=== PATIENT | male | born 1930 | race Caucasian/White ===

== ENCOUNTER 2017-01-01 12:52 | Emergency (ER) | payer MEDICARE ==
--- NOTE | ~2017-01-01 | CR150 ---
[facility] A Service of [facility] RADIOLOGY TEXT RESULTS PATIENT: PATRIC HERNANDEZ LOCATION: [facility] : 32 UNIT #: [id number] AGE: [address]: Christos Joseph MD SEX: M ORDER DR: [id number] [facility] [address] [place], [place] [address] [id number] E MR#: [id number] Acc #: [id number] NAME: PATRIC HERNANDEZ : 1930 SEX: M STUDY DATE/TIME: 01/01/2017 16:18 UNIT: [facility] ROOM: STUDY DESCRIPTION: CR Hip Min 2 Views Lt Attending Physician: Christos Joseph M.D. Ordering Physician: Christos Joseph M.D. Primary Care Physician: Louis Esparza M.D. MEDICAL IMAGING REPORT This report is preliminary unless electronic signature is present EXAM AP pelvis view frog view left hip (2 images), 01/01/2017 HISTORY Left hip pain laterally and posteriorly after falling yesterday. COMPARISON CT abdomen and pelvis, 11/09/2012 FINDINGS No acute pelvic fracture, hip fracture or hip dislocation is seen. No suspicious osteolytic or osteoblastic abnormalities. Hip joint spaces appear fairly well maintained without significant osteoarthritic change. No sacroiliac joint or pubic symphysis diastasis is seen. Mild diminished disc height is thought to be present at L3-4. IMPRESSION No acute abnormality of the pelvis or left hip. No significant left hip osteoarthritic changes are identified. Dictated by... Anne Scott M.D. THIS IS AN ELECTRONICALLY VERIFIED REPORT Anne Scott M.D. at 01/02/2017 2:10 PM RORY/serena TD: 01/02/2017 07:55 JOB #: [id number] MEDICAL IMAGING REPORT Page 1 of 1 COPY
[~2017-01-01 12:52] MED LIST: AMARYL PO; ASPIRIN81 M1; ASPIRIN81 MG PO; AUGMENTIN875 MG PO; B12 HEALTH1000 MCG/1 PO; BACTROBAN15 GM TOP; BAYER ASPIRIN325 M1 PO; BENICAR HCT 20-1 TA1 PO; BENICAR HCT 40-1 TA1 PO; BENTYL10 MG PO; CARDURA PO; CERTAGEN PO; CORDARONE200 M1 PO; COUMADIN4 MG PO; DETROL LA PO; DILT-XR240 M1 PO; FLAGYL PO; FLOMAX0.4 M1 PO; FLOMAX0.4 MG PO; GELNIQUE30 GM; GELNIQUE30 GM TD; JANTOVEN4 MG; JANTOVEN5 MG PO; K-DUR20 ME1 PO; LEXAPRO; METOPROLOL SUCC25 MG PO; METOPROLOL TAR25 MG PO; METOPROLOL TART25 MG PO; MULTAQ400 MG PO; NAPROXEN PO; NAPROXEN SODIU220 M1 PO; NORVASC PO; OSTEO BIFLEX PO; PACERONE PO; PERCOCET PO; PREVACID 24HR15 MG PO; PRILOSEC PO; PRILOSEC20 MG PO; VIBRAMYCIN100 M1 PO; VIT B 12 PO
[2017-01-01 16:31] LABS: BASOPHIL% 0.5 % (0-2.5); EOSINOPHIL# 0.1 X10e3 (0-0.7); EOSINOPHIL% 0.7 % (0.0-7.0); HEMATOCRIT 34.5 % (38.0-50.0); HEMOGLOBIN 11.3 gm/dL (13.0-16.0); LYMPHOCYTE# 1.6 X10e3 (1.0-3.5); LYMPHOCYTE% 19.1 % (17.0-45.0); MEAN CELL VOLUME 90.6 FL (83-96); MEAN CORPUSCULAR HEMOGLOBIN 29.6 PG (28-34); MEAN CORPUSCULAR HGB CONC 32.6 g/dL (30-36); MEAN PLATELET VOLUME 8.5 FL (6.5-11.5); MONOCYTE# 0.7 X10e3 (0-1.0); MONOCYTE% 8.7 % (3.0-12.0); NEUTROPHIL# 5.9 X10e3 (1.5-7.1); PLATELET COUNT 228 X10e3 (140-420); RED BLOOD COUNT 3.81 X10e (3.90-5.60); RED CELL DISTRIBUTION WIDTH 13.9 % (11.0-15.5); WHITE BLOOD COUNT 8.3 X10e3 (4.0-10.5)
[2017-01-01 16:38] LABS: DIFF IND NO
[2017-01-01 16:48] LABS: INR 4.4; PARTIAL THROMBOPLASTIN TIME 44.7 SECONDS (23.5-31.3)
[2017-01-01 16:49] LABS: PROTHROMBIN TIME (PATIENT) 48.8 SECONDS (9.6-11.5)
== END 2017-01-01 17:13 | disposition home or self-care (01) ==
LOC: CED 12:52
PROVIDERS: Emergency Medicine
DX: S00.03XA Contusion of scalp, initial encounter (principal); T45.511A Poisoning by anticoagulants, accidental (unintentional), initial encounter; K21.9 Gastro-esophageal reflux disease without esophagitis; J45.909 Unspecified asthma, uncomplicated; E11.9 Type 2 diabetes mellitus without complications; I10 Essential (primary) hypertension; W01.0XXA Fall on same level from slipping, tripping and stumbling without subsequent striking against object, initial encounter; Y92.009 Unspecified place in unspecified non-institutional (private) residence as the place of occurrence of the external cause
CPT/HCPCS: 36415; 73502; 85025; 85610; 85730; 99283

== ENCOUNTER 2017-02-13 11:33 | Emergency (ER) | payer MEDICARE ==
--- NOTE | ~2017-02-13 | CR151 ---
[facility] A Service of [facility] RADIOLOGY TEXT RESULTS PATIENT: PATRIC HERNANDEZ LOCATION: [facility] : 32 UNIT #: [id number] AGE: [address]: Lázaro Ballesteros DO SEX: M ORDER DR: [id number] [facility] [address] [place], [place] [address] [id number] E MR#: [id number] Acc #: [id number] NAME: PATRIC HERNANDEZ : 1930 SEX: M STUDY DATE/TIME: 02/13/2017 13:17 UNIT: [facility] ROOM: STUDY DESCRIPTION: CR Hip Min 2 Views Rt Attending Physician: Lázaro Ballesteros D.O. Ordering Physician: Ed Ricardo Whaley M.D. Primary Care Physician: Louis Esparza M.D. MEDICAL IMAGING REPORT This report is preliminary unless electronic signature is present EXAM Right hip 02/13/2017 1317 hours HISTORY Patient fell into a wall today, hip pain today. COMPARISON Left hip film 01/01/2017 FINDINGS AP pelvis and frog lateral view right hip demonstrate no pelvic or hip fracture. There is mild degenerative change present. IMPRESSION No pelvic or hip fracture seen. No change from 01/01/2017. Dictated by... Eri De La Rosa M.D. THIS IS AN ELECTRONICALLY VERIFIED REPORT Eri De La Rosa M.D. at 02/13/2017 2:30 PM GREYSON/thea TD: 02/13/2017 14:10 JOB #: [id number] MEDICAL IMAGING REPORT Page 1 of 1 COPY
--- NOTE | ~2017-02-13 | CT71 ---
[facility] A Service of [facility] RADIOLOGY TEXT RESULTS PATIENT: PATRIC HERNANDEZ LOCATION: [facility] : 32 UNIT #: [id number] AGE: [address]: Tay Alexander MD SEX: M ORDER DR: [id number] [facility] [address] [place], [place] [address] [id number] E MR#: [id number] Acc #: [id number] NAME: PATRIC HERNANDEZ. : 1930 SEX: M STUDY DATE/TIME: 02/13/2017 15:22 UNIT: [facility] ROOM: STUDY DESCRIPTION: CT Head Wo Contrast Attending Physician: Tay Alexander M.D. Ordering Physician: Lázaro Ballesteros D.O. Primary Care Physician: Louis Esparza M.D. MEDICAL IMAGING REPORT This report is preliminary unless electronic signature is present EXAM CT of the head, 02/13/2017. HISTORY Right abdominal pain, right hip pain after fall 3 days ago. Intermittent confusion x3 days. TECHNIQUE CT head performed skull base to vertex without intravenous contrast. This CT exam was performed with one or more of the following radiation dose reduction techniques: automatic exposure control, adjustment of mA and/or kV according to patient size, and iterative reconstruction. COMPARISON 09/11/2016 FINDINGS The brain stem is unremarkable. The cerebellum and cerebral hemispheres show normal vinson matter-white matter differentiation. No hemorrhage. No evidence of acute cortical ischemia. Midline structures nondisplaced. No acute basal ganglia abnormality. There are periventricular and deep white matter tract probable sequelae of chronic microvascular ischemia. The ventricles, cisterns and sulci show mild generalized enlargement, consistent with mild generalized atrophy. There is no intra- or extraaxial mass effect or abnormal intracranial fluid collection. The visualized paranasal sinuses and mastoid air cells are clear. No fracture. IMPRESSION 1. No acute abnormality seen in the brain. If the patient has ongoing neurologic symptoms, consider follow-up imaging. 2. Mild periventricular and deep white matter tract probable sequelae of chronic microvascular ischemia. [facility] A Service of [facility] RADIOLOGY TEXT RESULTS PATIENT: PATRIC HERNANDEZ [id number] UNIT #: [id number] AGE: [address]: Tay Alexander MD SEX: M ORDER DR: 3. Mild atrophy. 4. No fracture. 5. Vascular calcifications. Dictated by... Aime Ortiz M.D. THIS IS AN ELECTRONICALLY VERIFIED REPORT Aime Ortiz M.D. at 02/13/2017 10:43 PM LAURA/dashawn TD: 02/13/2017 17:26 JOB #: [id number] MEDICAL IMAGING REPORT Page 1 of 1 COPY
--- NOTE | ~2017-02-13 | CT4 ---
[facility] A Service of [facility] RADIOLOGY TEXT RESULTS PATIENT: PATRIC HERNANDEZ LOCATION: [facility] : 32 UNIT #: [id number] AGE: [address]: Tay Alexander MD SEX: M ORDER DR: [id number] [facility] [address] [place], [place] [address] [id number] E MR#: [id number] Acc #: [id number] NAME: PATRIC HERNANDEZ. : 1930 SEX: M STUDY DATE/TIME: 02/13/2017 14:39 UNIT: [facility] ROOM: STUDY DESCRIPTION: CT Abd and Pelv Wo Cont Attending Physician: Tay Alexander M.D. Ordering Physician: Lázaro Ballesteros D.O. Primary Care Physician: Louis Esparza M.D. MEDICAL IMAGING REPORT This report is preliminary unless electronic signature is present EXAM Abdomen and pelvis CT without contrast HISTORY Right-sided abdominal pain and hip pain after falling 3 days ago with intermittent confusion over the past 3 days. TECHNIQUE Axial images were obtained without contrast. This CT exam was performed with one or more of the following radiation dose reduction techniques: automatic exposure control, adjustment of mA and/or kV according to patient size, and iterative reconstruction. FINDINGS CT ABDOMEN: Mild fibrotic changes are seen at both lung bases. Coronary artery calcifications are seen. In the abdomen, layering hyperdense sludge is seen in the gallbladder. No definite calcified gallstones are seen. The liver, spleen and pancreas are normal in size. No evidence of hydronephrosis or kidney stone disease. Both ureters are non-dilated. No distended bowel loops are noted. The appendix is normal. Diverticulosis is seen without evidence of diverticulitis. No evidence of bowel obstruction. The lower thoracic and lumbar vertebrae show no acute fractures. There is a chronic-appearing upper endplate fracture of L1. IMPRESSION Diverticulosis. No acute or inflammatory changes in the abdomen or pelvis. Sludge in the gallbladder without evidence of gallstones. Mild basilar fibrosis. Dictated by... [facility] A Service of [facility] RADIOLOGY TEXT RESULTS PATIENT: PATRIC HERNANDEZ [id number] 32 UNIT #: [id number] AGE: [address]: Tay Alexander MD SEX: M ORDER DR: Tay Maria M.D. THIS IS AN ELECTRONICALLY VERIFIED REPORT Tay Maria M.D. at 02/14/2017 7:30 AM RLF/megan TD: 02/13/2017 17:43 JOB #: [id number] MEDICAL IMAGING REPORT Page 1 of 1 COPY
--- NOTE | ~2017-02-13 | CR72 ---
[facility] A Service of [facility] RADIOLOGY TEXT RESULTS PATIENT: PATRIC HERNANDEZ LOCATION: [facility] : 32 UNIT #: [id number] AGE: [address]: Tay Alexander MD SEX: M ORDER DR: [id number] [facility] [address] [place], [place] [address] [id number] E MR#: [id number] Acc #: [id number] NAME: PATRIC HERNANDEZ. : 1930 SEX: M STUDY DATE/TIME: 02/13/2017 14:20 UNIT: [facility] ROOM: STUDY DESCRIPTION: CR Chest Single View Portable Attending Physician: Lázaro Ballesteros D.O. Ordering Physician: Lázaro Ballesteros D.O. Primary Care Physician: Louis Esparza M.D. MEDICAL IMAGING REPORT This report is preliminary unless electronic signature is present EXAM Portable chest. HISTORY Dizziness and shortness of breath onset today. TECHNIQUE Single view of the chest was obtained and compared with 02/01/2014. FINDINGS Cardiomegaly and a tortuous ectatic aorta are again seen. The lungs are clear except for mild chronic fibrosis at the left base that is stable since the previous exam. Vascular markings are normal and no pleural fluid is seen. 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 No change from the previous exam. No new infiltrates are seen. Dictated by... Tay Maria M.D. THIS IS AN ELECTRONICALLY VERIFIED REPORT Tay Maria M.D. at 02/13/2017 4:42 PM BENI/aliyah TD: 02/13/2017 14:53 JOB #: [id number] MEDICAL IMAGING REPORT Page 1 of 1 COPY
[2017-02-13 14:45] LABS: BASOPHIL% 0.5 % (0-2.5); EOSINOPHIL# 0.1 X10e3 (0-0.7); EOSINOPHIL% 0.9 % (0.0-7.0); HEMATOCRIT 36.9 % (38.0-50.0); LYMPHOCYTE# 0.9 X10e3 (1.0-3.5); LYMPHOCYTE% 11.9 % (17.0-45.0); MEAN CELL VOLUME 94.2 FL (83-96); MEAN CORPUSCULAR HEMOGLOBIN 30.7 PG (28-34); MEAN CORPUSCULAR HGB CONC 32.6 g/dL (30-36); MEAN PLATELET VOLUME 8.5 FL (6.5-11.5); MONOCYTE# 0.8 X10e3 (0-1.0); MONOCYTE% 10.4 % (3.0-12.0); NEUTROPHIL# 5.7 X10e3 (1.5-7.1); NEUTROPHIL% 76.3 % (40-75); PLATELET COUNT 209 X10e3 (140-420); RED BLOOD COUNT 3.92 X10e (3.90-5.60); RED CELL DISTRIBUTION WIDTH 14.6 % (11.0-15.5); WHITE BLOOD COUNT 7.4 X10e3 (4.0-10.5)
[2017-02-13 14:47] LABS: DIFF IND NO
[2017-02-13 14:55] LABS: POC - CKMB 1.8 ng/mL (0.0-7.9); POC - TROPONIN <0.05 ng/mL (<=0.05)
[2017-02-13 14:58] LABS: INR 1.4; PARTIAL THROMBOPLASTIN TIME 34.3 SECONDS (23.5-31.3)
[2017-02-13 15:01] LABS: PROTHROMBIN TIME (PATIENT) 15.4 SECONDS (10.0-11.7)
[2017-02-13 15:13] LABS: ALBUMIN SERUM 3.6 g/dL (3.5-5.0); BILIRUBIN,TOTAL 1.1 mg/dL (0.2-2.0); BUN/CREATININE RATIO 17.77; CALCIUM SERUM 8.9 mg/dL (8.4-10.2); CREATININE SERUM 0.9 mg/dL (0.6-1.4); GLOM FILT RATE Estimated 78.2 mL/min (>60); MAGNESIUM 1.5 mg/dL (1.6-3.0); POTASSIUM 3.4 mmol/L (3.5-5.1); PROTEIN TOTAL SERUM 6.7 g/dL (6.0-8.3)
[2017-02-13 16:28] LABS: POC - CKMB <1.0 ng/mL (0.0-7.9); POC - TROPONIN <0.05 ng/mL (<=0.05)
[2017-02-13 16:56] LABS: URINE SOURCE CLEAN CATCH
[2017-02-13 17:00] LABS: URINE APPEARANCE CLEAR; URINE BILIRUBIN NEG (NEG); URINE BLOOD NEG (NEG); URINE COLOR YELLOW; URINE GLUCOSE 250 MG/DL (NEG); URINE KETONE TRACE (NEG); URINE LEUKOCYTE ESTERASE TRACE (NEG); URINE NITRATE NEG (NEG); URINE PROTEIN TRACE (NEG)
[2017-02-13 17:03] LABS: U HYALINE CASTS AUWI 0-2 /[LPF]; URINE BACTERIA AUWI NEG (NEGATIVE); URINE SQUAMOUS EPITHELIAL CELL NONE SEEN /[HPF]
[2017-02-13 17:07] LABS: CULTURE INDICATED? NO
[2017-02-14] MEDS ORDERED: METFORMIN PO (10:12)
[2017-02-14] MEDS ORDERED: CELEXA20 MG PO (10:13)
[2017-02-14] MEDS ORDERED: CARTIA XT240 MG PO (10:13)
[2017-02-14] MEDS ORDERED: ACCU-CHEK1 EAC2 (10:14)
== END 2017-02-13 18:20 | disposition home or self-care (01) ==
LOC: CED 11:33
PROVIDERS: Emergency Medicine
DX: S70.01XA Contusion of right hip, initial encounter (principal); S30.0XXA Contusion of lower back and pelvis, initial encounter; Z79.01 Long term (current) use of anticoagulants; F03.90 Unspecified dementia, unspecified severity, without behavioral disturbance, psychotic disturbance, mood disturbance, and anxiety; W18.30XA Fall on same level, unspecified, initial encounter; Y92.002 Bathroom of unspecified non-institutional (private) residence as the place of occurrence of the external cause
CPT/HCPCS: 36415; 70450; 71010; 73502; 74176; 80053; 81003; 82553; 83735; 84484; 85025; 85610; 85730; 99284

== ENCOUNTER 2017-02-14 02:03 | Inpatient (IN) | payer MEDICARE ==
[~2017-02-14] VITALS: Ht 175.3 cm; Wt 83.6 kg
--- NOTE | ~2017-02-14 | DS ---
Unit #: [id number] #: [id number] Patient: PATRIC HERNANDEZ [id number] [address] [address] [id number] I MR#: [id number] NAME: PATRIC HERNANDEZ. ROOM: 564 Age: 86 Sex: M Admission Date: 02/14/2017 : 1930 Discharge Date: 02/19/2017 Attending Physician: Thalia Monsalve M.D. Primary Care Physician: Louis Esparza M.D. DISCHARGE SUMMARY PRINCIPAL DIAGNOSES 1. Dementia with behavioral disturbance. 2. Hypokalemia. 3. Hypertension, controlled. 4. Physical deconditioning. 5. History of atrial fibrillation, currently maintained in normal sinus rhythm and off anticoagulation. 6. Diabetes mellitus type 2, noninsulin requiring and controlled. 7. Aortic stenosis, mild. 8. Benign prostatic hypertrophy, status post transurethral resection of prostate. 9. Gastroesophageal reflux disease. 10. History of nephrolithiasis. 11. History of vitamin B12 deficiency with normal vitamin B12 level here. 12. Osteoarthritis. ECONOMIC SPECIALIST Dr. Gandhi, Psychiatry. PROCEDURES 1. X-ray of the right hip on February 13, 2017 with no pelvic or hip fracture. 2. Chest x-ray on February 13, 2017, with chronic left basilar infiltrate consistent with fibrosis. 3. CT scan of abdomen and pelvis without contrast on February 13, 2017 with diverticulosis. Sludge in the gallbladder without evidence of gallstones. Mild basilar fibrosis noted. 4. CT of the head without contrast on February 13, 2017 with no acute abnormality. Mild periventricular deep white matter tract sequela of small vessel disease noted. 5. MRI of the brain without contrast on February 14, 2017 with no evidence of acute ischemia and no evidence of hemorrhage. Small vessel disease noted. CLINICAL HISTORY AND HOSPITAL COURSE Ms. Hernandez is an 86-year-old male with a history of dementia, who was brought to the emergency department with increasing confusion new onset, worsening agitation. Please refer to H and p for further details. The patient underwent CT scan of the head in the emergency department which was unremarkable. Blood work was also essentially unremarkable. Patient was subsequently admitted for further evaluation. Patient was placed initially on p.r.n. Haldol; however, his agitation continued and I will note it was primarily worse at nighttime. He was Unit #: [id number] #: [id number] Patient: PATRIC HERNANDEZ placed on scheduled Haldol and psychiatry was consulted. Fortunately after about 48 hours, patient's agitation and confusion resolved. His Haldol dose has been tapered. He is now awake during the day and appropriate, though does have some underlying memory loss. He has also underwent MRI of the brain which does not reveal any acute abnormalities as a source of his symptoms. I have discussed with patient's family, namely his and his son Rigo, that he does have underlying dementia and the behavioral disturbance is a component of that. I will continue him on Haldol at home scheduled and will provide a p.r.n. dose in the morning if needed. Patient also has hypertension which was poorly controlled for a portion of hospitalization given he was not compliant with medications; however, even after awake and alert, his blood pressure remained elevated. I am going to increase his dose of hydralazine and blood pressure can be monitored on an outpatient basis. Patient is physically deconditioned, and I will arrange for transfer to subacute rehab. Long-term plans for care are currently being discussed with family, i.e. home care and/or transition to long-term care which ultimately family does not desire unless necessary. DISCHARGE CONDITION Stable. DISCHARGE STATUS Discharge to home. DISCHARGE MEDICATIONS 1. Tylenol 650 mg p.o. q.4 hours p.r.n. for pain. 2. Metformin 1000 mg daily. 3. Haldol 1 mg p.o. at bedtime. 4. Diltiazem 240 mg daily. 5. Hydralazine 50 mg p.o. t.i.d. 6. Mobic 7.5 mg daily. DISCHARGE INSTRUCTIONS 1. The patient was instructed to follow a heart healthy diet and constant carb diet. 2. He can increase his activity as tolerated. FOLLOWUP Patient will follow up with Dr. Esparza upon discharge from rehab. Time spent on discharge, 33 minutes. Dictated by... Thalia Monsalve M.D. IRVING/mitchell TD: 02/19/2017 11:37 JOB #: [id number] Unit #: [id number] #: [id number] Patient: PATRIC HERNANDEZ DISCHARGE SUMMARY Page 1 of 1 X Thalia Monsalve MD X DISCHARGE SUMMARY
--- NOTE | ~2017-02-14 | MR18 ---
[facility] A Service of [facility] RADIOLOGY TEXT RESULTS PATIENT: PATRIC HERNANDEZ LOCATION: [facility] 564-01 : 32 UNIT #: [id number] AGE: [address]: Thalia Monsalve MD SEX: M ORDER DR: [id number] [facility] [address] [place], [place] [address] [id number] I MR#: [id number] Acc #: [id number] NAME: PATRIC HERNANDEZ. : 1930 SEX: M STUDY DATE/TIME: 02/14/2017 9:09 UNIT: [facility] ROOM: [facility] STUDY DESCRIPTION: MR Brain Wo Contrast Attending Physician: Thalia Monsalve M.D. Ordering Physician: Estefania Treadwell M.D. Primary Care Physician: Louis Esparza M.D. MRI CENTER REPORT This report is preliminary unless electronic signature is present. EXAM Brain MR without contrast 02/14/2017 CLINICAL HISTORY Multiple falls began yesterday, confusion and weakness. COMPARISON Prior MRI 02/01/2014. FINDINGS There is no MR evidence of acute ischemia. There is no MR evidence of intracranial hemorrhage. There is mild to moderate motion degradation, and there is nonspecific small vessel type white matter change, but no acute intracranial abnormality is seen. Bone marrow signal is within normal limits. Normal flow voids are seen in the cerebral vessels. IMPRESSION Motion degraded exam, but no convincing acute abnormality. There is some nonspecific white matter change and volume loss, not exceptional for age. There is no hemorrhage, hydrocephalus, extraaxial fluid collection or other acute finding. No substantial interval change since 02/01/2014. Dictated by... Devon Loya M.D. THIS IS AN ELECTRONICALLY VERIFIED REPORT Devon Loya M.D. at 02/14/2017 5:04 PM FLORENCIO/cristobal TD: 02/14/2017 13:25 JOB #: [id number] [facility] A Service of [facility] RADIOLOGY TEXT RESULTS PATIENT: PATRIC HERNANDEZ LOCATION: [facility] 564-01 : 32 UNIT #: [id number] AGE: [address]: Thalia Monsalve MD SEX: M ORDER DR: MRI CENTER REPORT Page 1 of 1 COPY
--- NOTE | ~2017-02-14 | CO ---
Unit #: [id number] #: [id number] Patient: PATRIC HERNANDEZ [id number] [facility] [place], [place] [address] [id number] I MR#: [id number] NAME: PATRIC HERNANDEZ. ROOM: 564 Age: 86 Sex: M Admission Date: 02/14/2017 : 1930 Attending Physician: Thalia Monsalve M.D. Primary Care Physician: Louis Esparza M.D. Consultation Date: 02/16/2017 CONSULTATION REPORT REASON FOR CONSULTATION Confusion and dementia. HISTORY OF PRESENT ILLNESS Mr. Patric Domingo is an 86-year-old white male, seen in room 564 bed 1 on 5C on 02/16/2017 at [facility]. The patient dressed in hospital attire, sleeping, difficult to arouse, confused, somewhat guarded, paranoid, agitated, easily needing redirection. The patient was unable to give any reliable information. The patient was admitted on 02/14/2017 due to progressive confusion and agitation and threatening behavior towards spouse. The patient has a history of atrial fibrillation, AODM, hypertension. The patient has a long-standing issues with memory and hard of hearing. According to the , the patient having increasing problem with memory, confusion, picking on things, hallucination. Behavior was unmanageable, also multiple falls at home. The patient's behavior has been violent at home, unable to be managed at home. PAST PSYCHIATRIC HISTORY Remarkable for history of confusion, possible dementia, history of anxiety and depression known at this time. No history of any inpatient psychiatric treatment. MEDICAL HISTORY Remarkable for history of AODM; atrial fibrillation, on anticoagulated; BPH, status post TURP; history of B12 deficiency; GERD; DJD; hypertension; bladder stone removal; history of cataract surgery; hard of hearing; bilateral knee replacement. MEDICATIONS HISTORY The patient is on Cardizem CD 240 mg daily, Celexa 20 mg daily. FAMILY HISTORY AND SOCIAL HISTORY The patient was living at home with his . No known history of any abuse. No history of any substance abuse. REVIEW OF SYSTEMS Complete review of systems is unremarkable except as mentioned above. Agitation, the patient was unable to provide details. MENTAL STATUS EXAMINATION Vital signs; temperature 97.8, pulse 87, respirations 24, blood pressure 150/79, oxygen saturations 100%. General appearance; the patient dressed in hospital attire, lying comfortably in bed, but received haloperidol Unit #: [id number] #: [id number] Patient: PATRIC HERNANDEZ this morning. The patient was agitated this morning and needed multiple redirection. Confusion. Attention span and concentration, poor. Speech, slow. Orientation, unable to assess. Mood and affect, labile. Thought process and thought content, unable to assess, disorganized. Recent and remote memory, poor. Language, fair. Fund of knowledge, impaired. Insight and judgment, impaired. DIAGNOSES Psychiatric: Delirium, F05; psychosis, not otherwise specified, F29.0; major neurocognitive disorder secondary to Alzheimer disease with behavioral disturbances, F02.81. Secondary diagnosis: Deferred. Medical diagnosis: Please refer to H and P. Stressors: Psychosocial stressor. ASSESSMENT AND PLAN 1. Unable to provide supportive psychotherapy or psychoeducation at this time and coherent. 2. Recommending at this time to continue with current regimen. Celexa was discontinued, agreed with the plan. Also recommending to discontinue Risperdal as would like to keep the minimum medication as possible. The patient's Haldol was recently increased to 3 mg b.i.d. p.o. or IM. Advised to hold Haldol as the patient seemed somewhat sleepy with this medication to attain a bright balance between wakefulness and agitation. Advised to hold Haldol if the patient too sleepy. If no improvement, consider transferring the patient to a [facility] for psychiatric stabilization. Please feel free to call if any questions telephone [phone]. Dictated by... Yosef Alvarez/juan TD: 02/18/2017 19:41 JOB #: [id number] CONSULTATION REPORT Page 1 of 1 X Jose Gandhi MD X CONSULTATION REPORT
--- NOTE | ~2017-02-14 | CO ---
Unit #: [id number] #: [id number] Patient: PATRIC HERNANDEZ [id number] [facility] [address] [place], [place] [address] [id number] I MR#: [id number] NAME: PATRIC HERNANDEZ. ROOM: 564 Age: 86 Sex: M Admission Date: 02/14/2017 : 1930 Attending Physician: Thalia Monsalve M.D. Primary Care Physician: Louis Esparza M.D. Consultation Date: 02/18/2017 CONSULTATION REPORT DISCUSSION Mr. Patric Domingo is an 86-year-old male, seen in room 564, bed 1 at [facility] on 02/18/2017. The patient was sleepy, drowsy, slept good, compliant with medication. The patient is unable to give any coherent history. Disorganized behavior thought process, but redirectable. Cooperative. No agitation. Still having problem with the confusion and memory problem. Vital signs; temperature 97.5, heart rate 69, respiratory rate 20, blood pressure 157/75, and oxygen saturation 95%. REVIEW OF SYSTEMS Complete review of system is unremarkable. MENTAL STATUS EXAMINATION General appearance; the patient dressed in hospital attire, lying comfortably in bed. Attention span and concentration, poor. Speech, slow in volume. Oriented in self. Mood and affect, labile. Thought process; disorganized, circumstantial. Thought content; guarded, paranoid. Recent and remote memory, poor. Language, fair. Fund of knowledge, poor. Insight and judgment, impaired. DIAGNOSIS Psychiatric: Major neurocognitive disorder secondary to Alzheimer disease with behavioral disturbances, F02.81. ASSESSMENT/PLAN Recommending at this time to continue with current combination of medication. The patient is currently on haloperidol, seemed somewhat sleepy, the dosage was lowered to 1 mg at bedtime. I agree with a plan to keep the medication minimum as possible. The patient is also on hydralazine and Mobic, p.r.n. Haldol is also available. The patient will be going to rehab and continue with current treatment on the inpatient unit. If needed, consider further adjustment of medication. Please feel free to call if any questions, telephone #[phone]. Dictated by... Yosef Alvarez/juan TD: 02/19/2017 00:48 JOB #: [id number] Unit #: [id number] #: [id number] Patient: PATRIC HERNANDEZ CONSULTATION REPORT Page 1 of 1 X Jose Gandhi MD CONSULTATION REPORT
--- NOTE | ~2017-02-14 | HP ---
Unit #: [id number] #: [id number] Patient: PATRIC HERNANDEZ [id number] [place], [place] [address] [id number] I MR#: [id number] NAME: PATRIC HERNANDEZ. ROOM: 564 Age: 86 Sex: M Admission Date: 02/14/2017 : 1930 Attending Physician: Estefania Treadwell M.D. Primary Care Physician: Louis Esparza M.D. HISTORY AND PHYSICAL CHIEF COMPLAINT Progressive confusion now with agitation and threatening behavior towards spouse. HISTORY OF PRESENT ILLNESS This pleasant 86-year-old male with atrial fibrillation, AODM, hypertension, is admitted for agitation. The patient himself is a poor historian due to some memory issues and the fact that he is hard of hearing. His states that two months ago he began to pick at things, hallucinate, exhibited more confusion. These symptoms were worse in the night. Also, he has been falling multiple times. He fell yesterday, was brought to this emergency department where his workup was negative. His was offered hospitalization for the patient but she declined and took the patient home. The patient became quite agitated last evening, threatened to hit the . This is the first time the patient has been violent, according to the . He was brought back to this emergency department where he is presently confused, is picking at things in the ER and hallucinating. No recent changes in medication. PAST MEDICAL HISTORY 1. AODM. 2. Atrial fibrillation, anticoagulated, status post cardioversion. Last echo was 01/2014. Ejection fraction 60% with mild MR, mild TR, mild aortic stenosis, mild to moderate [place]. 3. BPH status post TURP. 4. History of B12 deficiency. 5. GERD. 6. DJD. 7. Hypertension. 8. Bladder stone removal. 9. Bilateral total knee replacements. 10. Cataract extraction. 11. 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 12. Bilateral shoulder surgeries. SOCIAL HISTORY The patient lives with his , stopped smoking 50 years ago, drinks an occasional beer. FAMILY HISTORY Noncontributory given patient's age but old record lists CVA. ALLERGIES Unknown anesthetic agent. Unit #: [id number] #: [id number] Patient: PATRIC HERNANDEZ HOME MEDICATIONS Unknown. REVIEW OF SYSTEMS Difficult to obtain due to the patient's confusion. PHYSICAL EXAMINATION GENERAL APPEARANCE: A pleasantly confused 86-year-old male who thinks that he is holding hearing AIDS but, in fact, is holding nothing in his hands. He is picking at his bed sheets and at his gown. VITAL SIGNS: Temperature 98.3. Pulse 80. Respirations 13. Blood pressure 183/82. O2 saturation 94% on room air. HEENT: Pupils are unequal secondary to previous surgery. Extraocular muscles are intact. Pharynx: Dry mucosal membranes. NECK: Supple without adenopathy or thyromegaly. CHEST: Clear. CARDIAC: Normal S1, S2 with a soft systolic murmur best heard along the left sternal border. ABDOMEN: Bowel sounds are present. No hepatosplenomegaly, tenderness or masses. EXTREMITIES: Without edema. Pedal pulses are somewhat diminished. No ulcers on the feet. NEUROLOGIC: The patient is awake, alert. He is oriented to person and year but not to place. His cranial nerves are intact, although his pupils are unequal secondary to previous surgery. He does have some difficulty at times expressing himself. He is picking at the bedsheets and thinks he is holding hearing AIDS when he is holding nothing in his hands. He has equal strength throughout. DIAGNOSTIC STUDIES LABORATORY: Yesterday, hematocrit is 36.9, normal white count, platelet count and MCV. SMA-12: Potassium 3.4, magnesium 1.5. Cardiac markers negative. INR 1.4. Urinalysis without significant white or red cells. IMAGING: Head CT yesterday: Some atrophy, small vessel ischemic disease. Repeat head CT: Atrophy. Chest x-ray: Fibrosis left base, unchanged. CT scan of the abdomen and pelvis: Some biliary sludge, chronic L1 deformity, diverticular disease. Plain x-rays of the hips, pelvis, negative. ASSESSMENT 1. Two months progressive memory loss, hallucination, now falling. Last evening after being released from the ER, he threatened his , was going to hit her and, therefore, was brought back to the emergency department. This was the first time the patient had become violent. 2. AODM. 3. Atrial fibrillation. 4. BPH. 5. Accelerated hypertension. PLAN 1. Check thyroid function test, B12 and MRI scan of the brain. 2. EKG. 3. Check home medicines. 4. PRN Haldol. 5. Dr. Gandhi to see. Unit #: [id number] #: [id number] Patient: PATRIC HERNANDEZ Dictated by Estefania Treadwell M.D. AML/bd TD: 02/14/2017 06:02 JOB #: [id number] HISTORY AND PHYSICAL Page 1 of 1 X Estefania Treadwell MD X HISTORY AND PHYSICAL
--- NOTE | ~2017-02-14 | EKG ---
PATIENT: PATRIC HERNANDEZ UNIT #: [id number] Ventricular Rate: 80 BPM Atrial Rate: 80 BPM P-R Interval: 212 ms QRS Duration: 114 ms Q-T Interval: 330 ms QTC Calculation(Bezet): 380 ms P [place]: 21 degrees Calculated R [place]: -10 degrees Calculated T [place]: 80 degrees Diagnosis Line: Sinus rhythm with 1st degree A-V block Diagnosis Line: Left ventricular hypertrophy with repolarization Diagnosis Line: abnormality Diagnosis Line: Abnormal ECG Diagnosis Line: When compared with ECG of 01-FEB-2014 08:48, Diagnosis Line: Nonspecific T wave abnormality now evident in Diagnosis Line: Inferior leads Diagnosis Line: QT has shortened Diagnosis Line: Confirmed by ZOHAIB MACIAS, JUAN DAVID ([id number]) on 02/15/2017 Diagnosis Line: 10:52:08 AM INTERPRETING MD: ZOHAIB MACIAS
--- NOTE | ~2017-02-14 | CO ---
Unit #: [id number] #: [id number] Patient: PATRIC HERNANDEZ [id number] [facility]. [place], [place] [address] [id number] I MR#: [id number] NAME: PATRIC HERNANDEZ ROOM: 564 Age: 86 Sex: M Admission Date: 02/14/2017 : 1930 Attending Physician: Thalia Monsalve M.D. Primary Care Physician: Louis Esparza M.D. Consultation Date: 02/20/2017 CONSULTATION REPORT REASON FOR CONSULTATION Followup. DISCUSSION Mr. Salgado is an 86-year-old male, seen in room 564 bed 1 at [facility] on 02/20/2017. The patient was sleepy this morning and periods of some agitation last night, confusion, needing redirection. The patient did not require any p.r.n. medication. The patient seems to be tolerating medication fairly well. According to the career information specialist, currently working on appropriate placement. The patient dressed casually lying comfortably in bed. The patient's was at the bedside. Vital signs; temperature 97.5, pulse 73, respirations 16, blood pressure 176/78, oxygen saturations 98%. The patient continues to be confused, but redirectable, cooperative. REVIEW OF SYSTEMS Complete review of systems unremarkable. MENTAL STATUS EXAMINATION General appearance, the patient dressed casually in hospital attire, lying comfortably in bed. Attention span and concentration, poor. Speech, rambling. Orientation in self. Mood and affect, labile. Thought process, circumstantial. Thought content, guarded, paranoid, but denied any thoughts of harming self or others. Recent and remote memory, poor. Language, fair. Fund of knowledge, poor. Insight and judgment, impaired. DIAGNOSES Psychiatric: Major neurocognitive disorder secondary to Alzheimer disease with behavioral disturbances, F02.81. ASSESSMENT AND PLAN 1. Supportive psychotherapy and psychoeducation provided to the patient and family, but the patient unable to comprehend much. Also talked to the patient's and also the patient's son and explained about treatment plan. 2. Advised to continue with current medication. If needed, consider further adjustment of medication. The patient needs supervised living care at this time and also rehab. Please feel free to call if any questions, telephone [phone]. Dictated by... Jose Gandhi M.D. Unit #: [id number] #: [id number] Patient: PATRIC HERNANDEZ MC/modl TD: 02/20/2017 17:57 JOB #: [id number] CONSULTATION REPORT Page 1 of 1 X Jose Gandhi MD X CONSULTATION REPORT
--- NOTE | ~2017-02-14 | CT71 ---
[facility] A Service of [facility] RADIOLOGY TEXT RESULTS PATIENT: PATRIC HERNANDEZ LOCATION: [facility] : 32 UNIT #: [id number] AGE: [address]: Estefania Treadwell MD SEX: M ORDER DR: [id number] [facility]. [place], [place] [address] [id number] P MR#: [id number] Acc #: [id number] NAME: PATRIC HERNANDEZ. : 1930 SEX: M STUDY DATE/TIME: 02/14/2017 2:33 UNIT: PREMA ROOM: STUDY DESCRIPTION: CT Head Wo Contrast Attending Physician: Pavel Davenport M.D. Ordering Physician: Pavel Davenport M.D. Primary Care Physician: Louis Esparza M.D. MEDICAL IMAGING REPORT This report is preliminary unless electronic signature is present EXAM CT scan of the brain without contrast INDICATION Multiple falls yesterday and at home today with acute mental status changes, confusion and weakness. COMPARISON 02/13/[address] exam was performed with one or more of the following radiation dose reduction techniques: automatic exposure control, adjustment of mA and/or kV according to patient size, and iterative reconstruction. FINDINGS Unenhanced images were obtained through the brain. There is generalized atrophy. There are no masses or extraaxial fluid collections or hemorrhage. IMPRESSION Generalized atrophy, otherwise normal. Dictated by... Hardik Escobar M.D. THIS IS AN ELECTRONICALLY VERIFIED REPORT Hardik Escobar M.D. at 02/14/2017 5:53 AM JAMAR/mignon TD: 02/14/2017 03:52 [facility] A Service [facility] RADIOLOGY TEXT RESULTS PATIENT: PATRIC HERNANDEZ LOCATION: [facility] 564-01 : 32 UNIT #: [id number] AGE: [address]: Estefania Treadwell MD SEX: M ORDER DR: JOB #: [id number] MEDICAL IMAGING REPORT Page 1 of 1 COPY
--- NOTE | ~2017-02-14 | CO ---
Unit #: [id number] #: [id number] Patient: PATRIC HERNANEDZ [id number] [facility] [address] [facility]. [place], [place] [address] [id number] I MR#: [id number] NAME: PATRIC HERNANDEZ ROOM: 564 Age: 86 Sex: M Admission Date: 02/14/2017 : 1930 Attending Physician: Thalia Monsalve M.D. Primary Care Physician: Louis Esparza M.D. Consultation Date: 02/17/2017 CONSULTATION REPORT REASON FOR CONSULTATION Followup. DISCUSSION Mr. Salgado is an 86-year-old white male, seen in room 564 bed 1 at [facility]. The patient's was at the bedside. The patient was sitting in chair, pleasant, cooperative, able to recognize his . Able to answer some of the questions, but still having problem with confusion and problem with memory, easily redirectable. The patient's was there since 9 o'clock. Reports that he is doing better, but still having problem at night. The patient's Haldol was lowered this morning to 2 mg b.i.d. The patient was able to tolerate medication fairly well. Alert and awake. Vital signs; temperature 98.8, pulse 70, respirations 20, blood pressure 116/99, oxygen saturation 99%. No agitation. Redirectable and cooperative at this time. Complete review of system unremarkable. Vital signs, please see above. MENTAL STATUS EXAMINATION General appearance; the patient dressed casually in hospital attire, sitting comfortably in chair, made good eye contact. Cooperative, redirectable. Attention span and concentration, fair. Speech, somewhat loud. Oriented in self and place. Mood and affect, labile. Thought process, circumstantial. Thought content, guarded, paranoid, but denied any thoughts of harming self or others. Recent and remote memory, impaired. Language fair. Fund of knowledge, fair to slightly impaired. Insight and judgment, fair to slightly impaired. DIAGNOSES Psychiatric: Major neurocognitive disorder secondary to Alzheimer disease with behavioral disturbances, F02.81; psychosis, not otherwise specified, F29.0. ASSESSMENT AND PLAN 1. Supportive psychotherapy and psychoeducation provided to the patient and the patient's , but the patient unable to comprehend much. 2. Educated about benefits and side effects of medication and course and prognosis of illness to the patient and family, but the patient unable to comprehend much. 3. Agree at this time to continue with lower dosage of Haldol, but if the patient continues to have problem at night, plan to consider medication such as higher dosage of Haldol at nighttime or adding Risperdal. We will continue to follow. Please feel free to call if any questions telephone [phone]. Unit #: [id number] #: [id number] Patient: PATRIC HERNANDEZ Dictated by... Yosef Alvarez/juan TD: 02/18/2017 20:52 JOB #: [id number] CONSULTATION REPORT Page 1 of 1 X Jose Gandhi MD X CONSULTATION REPORT
--- NOTE | ~2017-02-14 | CO ---
Unit #: [id number] #: [id number] Patient: PATRIC HERNANDEZ [id number] [facility] [address] [facility]. [place], [place] [address] [id number] I MR#: [id number] NAME: PATRIC HERNANDEZ ROOM: 564 Age: 86 Sex: M Admission Date: 02/14/2017 : 1930 Attending Physician: Thalia Monsalve M.D. Primary Care Physician: Louis Esparza M.D. Consultation Date: 02/19/2017 CONSULTATION REPORT REASON FOR CONSULTATION Followup. DISCUSSION Mr. Patric Domingo is an 86-year-old white male, seen in room 564, bed 1 on 02/19/2017 at [facility]. The patient was alert and awake. Currently, on Haldol 1 mg at bedtime. The patient was sitting comfortably in chair, made good eye contact, able to answer questions appropriately. The patient's vital signs are stable; temperature 97.4, heart rate 77, respiratory rate 18, blood pressure 176/69, and oxygen saturation 97%. The patient is still having problem with the confusion and poor memory, but no agitation. Redirectable, cooperative, slept good. REVIEW OF SYSTEMS Complete review of systems unremarkable. MENTAL STATUS EXAMINATION General appearance; the patient dressed casually in hospital attire, sitting comfortably in chair. Attention span and concentration, poor. Speech, slow with long pauses. Oriented in self. Mood and affect, labile. Thought process, circumstantial. Thought content, guarded and paranoid, but denied any thoughts of harming self or others. Recent and remote memory, poor. Language, fair. Fund of knowledge, poor. Insight and judgment, impaired. DIAGNOSIS Psychiatric: Major neurocognitive disorder secondary to Alzheimer disease with behavioral disturbances, F02.81. ASSESSMENT/PLAN 1. Supportive psychotherapy and psychoeducation provided to the patient, but the patient unable to comprehend much. 2. Advised to continue with current medication. Agree at this time to continue with a low dose of Haldol 1 mg at bedtime. If needed, consider further adjustment of medication. Please feel free to call if any questions, telephone #[phone]. Dictated by... Yosef Alvarez/juan TD: 02/20/2017 01:03 Unit #: [id number] #: [id number] Patient: PATRIC HERNANDEZ JOB #: [id number] CONSULTATION REPORT Page 1 of 1 X Jose Gandhi MD X CONSULTATION REPORT
[2017-02-14] MEDS ORDERED: METFORMIN PO (10:12)
[2017-02-14] MEDS ORDERED: CARTIA XT240 MG PO (10:13)
[2017-02-14] MEDS ORDERED: CELEXA20 MG PO (10:13)
[2017-02-14] MEDS ORDERED: ACCU-CHEK1 EAC2 (10:14)
[2017-02-14 16:12] LABS: BASOPHIL% 0.5 % (0-2.5); EOSINOPHIL% 0.2 % (0.0-7.0); HEMATOCRIT 37.7 % (38.0-50.0); HEMOGLOBIN 12.6 gm/dL (13.0-16.0); LYMPHOCYTE# 0.8 X10e3 (1.0-3.5); MEAN CELL VOLUME 94.6 FL (83-96); MEAN CORPUSCULAR HEMOGLOBIN 31.6 PG (28-34); MEAN CORPUSCULAR HGB CONC 33.4 g/dL (30-36); MEAN PLATELET VOLUME 8.4 FL (6.5-11.5); MONOCYTE# 0.9 X10e3 (0-1.0); MONOCYTE% 10.5 % (3.0-12.0); NEUTROPHIL# 7.1 X10e3 (1.5-7.1); NEUTROPHIL% 79.8 % (40-75); PLATELET COUNT 214 X10e3 (140-420); RED BLOOD COUNT 3.99 X10e (3.90-5.60); RED CELL DISTRIBUTION WIDTH 14.6 % (11.0-15.5); WHITE BLOOD COUNT 8.9 X10e3 (4.0-10.5)
[2017-02-14 16:13] LABS: DIFF IND NO
[2017-02-14 17:17] LABS: THYROID STIMULATING HORMONE 2.41 uIU/ml (0.34-5.60)
[2017-02-14 17:24] LABS: FREE THYROXIN (T4) 1.12 ng/dL (0.58-1.64)
[2017-02-14 19:34] LABS: CALCIUM SERUM 8.7 mg/dL (8.4-10.2); CREATININE SERUM 0.8 mg/dL (0.6-1.4); GLOM FILT RATE Estimated 82.1 mL/min (>60); POTASSIUM 3.1 mmol/L (3.5-5.1)
[2017-02-19 05:23] LABS: HEMATOCRIT 37.9 % (38.0-50.0); HEMOGLOBIN 12.5 gm/dL (13.0-16.0); MEAN CELL VOLUME 93.2 FL (83-96); MEAN CORPUSCULAR HEMOGLOBIN 30.6 PG (28-34); MEAN CORPUSCULAR HGB CONC 32.8 g/dL (30-36); MEAN PLATELET VOLUME 8.3 FL (6.5-11.5); RED BLOOD COUNT 4.07 X10e (3.90-5.60); RED CELL DISTRIBUTION WIDTH 14.2 % (11.0-15.5); WHITE BLOOD COUNT 6.8 X10e3 (4.0-10.5)
[2017-02-19 06:21] LABS: CALCIUM SERUM 8.9 mg/dL (8.4-10.2); CREATININE SERUM 1.1 mg/dL (0.6-1.4); GLOM FILT RATE Estimated 61.3 mL/min (>60)
[2017-02-19 06:22] LABS: POTASSIUM 2.9 mmol/L (3.5-5.1)
== END 2017-02-20 18:41 | DRG 57 ==
LOC: CED 02:03 → C5C 04:54 → CEDOF 04:54 → CED 04:54 → C5C 05:40
PROVIDERS: Internal Medicine
DX: G30.9 Alzheimer's disease, unspecified (principal); F05 Delirium due to known physiological condition; I48.91 Unspecified atrial fibrillation; F02.81 Dementia in other diseases classified elsewhere, unspecified severity, with behavioral disturbance; E87.6 Hypokalemia; I10 Essential (primary) hypertension; E11.9 Type 2 diabetes mellitus without complications; Z79.84 Long term (current) use of oral hypoglycemic drugs; I35.0 Nonrheumatic aortic (valve) stenosis; N40.0 Benign prostatic hyperplasia without lower urinary tract symptoms; F29 Unspecified psychosis not due to a substance or known physiological condition; K21.9 Gastro-esophageal reflux disease without esophagitis; M19.90 Unspecified osteoarthritis, unspecified site; Z91.81 History of falling; Z87.442 Personal history of urinary calculi; Z96.653 Presence of artificial knee joint, bilateral; Z87.891 Personal history of nicotine dependence; Z98.49 Cataract extraction status, unspecified eye; Z82.3 Family history of stroke
CPT/HCPCS: 36415; 70450; 70551; 71010; 73502; 74176; 80048; 80053; 81003; 82553; 82607; 82947; 83735; 84132; 84439; 84443; 84484; 85025; 85027; 85610; 85730; 93005; 97110; 97116; 97163; 97165; 97530; 97535; 99285; G8978-GP; G8979-GP; G8980-GP; G8987-GO; G8988-GO; J0360; J1630; J1885; J2060; J3475

== ENCOUNTER 2017-03-01 12:56 | Inpatient (IN) | payer MEDICARE ==
--- NOTE | ~2017-03-01 | CO ---
Unit #: [id number] #: [id number] Patient: PATRIC HERNANDEZ [id number] [place], [place] [address] [id number] I MR#: [id number] NAME: PATRIC HERNANDEZ. ROOM: 564 Age: 86 Sex: M Admission Date: 03/01/2017 : 1930 Attending Physician: Brii Serrano M.D. Primary Care Physician: Louis Esparza M.D. CONSULTATION REPORT HISTORY OF PRESENT ILLNESS Mr. Hernandez is an 86-year-old, white male, who has a history of dementia, had been residing at the senior living. Apparently, he became more congested and confused and hypoxic and presented to the emergency room. Apparently, he was in respiratory distress with O2 saturations in the 60s, came to the emergency room, was placed on 5 L and on BiPAP. His daughter and were at the bedside. He had recently been discharged on the 18 with behavioral disturbance and had some medications changed. I think he was doing little bit better at the senior living and at the first of last week, had been awake and alert and choking with his family. PAST MEDICAL HISTORY Significant for; 1. Diabetes. 2. Atrial fibrillation. 3. BPH. 4. History of B12 deficiency. 5. GERD. 6. DJD. 7. Hypertension. 8. Bladder stone. PAST SURGICAL HISTORY He has had bilateral knee replacement, cataract extraction, basal cell and squamous cell carcinoma excision, bilateral shoulder surgeries with replacement. ALLERGIES No known allergies. HOME MEDICATIONS 1. Tylenol. 2. Fleets enema. 3. Glucophage. 4. Haloperidol. 5. Cardizem. 6. Hydralazine. 7. Mobic. FAMILY HISTORY Unknown. SOCIAL HISTORY Stopped smoking at age 27. Occasionally, drinks some beer. Currently, in Unit #: [id number] #: [id number] Patient: PATRIC HERNANDEZ senior living. REVIEW OF SYSTEMS Unobtainable. The patient is unable to give any history. CODE STATUS DNR. Discussed with family at bedside. PHYSICAL EXAMINATION GENERAL: White male, wearing Venturi mask, poorly responsive, snoring with obvious apneic episodes. Apparently, has a history of ELIZABETH, but has refused CPAP. VITAL SIGNS: Blood pressure is 153/70, pulse 85, respiratory rate 20, afebrile. T-max 100.9. HEENT: Normocephalic and atraumatic. Pupils are equal, round, and reactive. Sclerae are nonicteric. Oral cavity dry. Mallampati IV. Some secretions in back of throat. NECK: Supple. Trachea midline. No cervical or supraclavicular lymphadenopathy. LUNGS: Scattered rhonchi. Upper airway sounds. CARDIAC: Regular rate and rhythm. Could not appreciate murmur, rub, or gallop. ABDOMEN: Nontender. Bowel sounds present. No hepatosplenomegaly. EXTREMITIES: Without clubbing, cyanosis, or edema. NEUROLOGIC: He does awaken. He mumbles. He does appear to move all extremities. SKIN: Warm and dry. DIAGNOSTIC STUDIES IMAGING STUDIES: Chest x-ray, new right lower lobe infiltrate. Arterial blood gases; pH 7.39, pCO2 of 40, PO2 of 65, on 50% venturi mask. Chemistries reviewed. Lactic acid 1.6. White count 68764, hematocrit 35.9, and platelet count normal. Current blood cultures are pending. Sputum is pending. IMPRESSION 1. Acute hypoxemic respiratory failure. 2. Likely aspiration pneumonia. 3. Dementia. 4. Diabetes. 5. Hypertension. 6. History of atrial fibrillation. 7. Benign prostatic hyperplasia. RECOMMENDATIONS I would currently cover for antibiotics with aspiration pneumonia and a healthcare-acquired pneumonia type setting, was treated with vancomycin and Zosyn. Deescalate based on culture results. We will start nebulizer treatments ,with albuterol and hypertonic saline. I will gently suction as needed to mobilize secretions. We will make n.p.o. as he is not able to control his airway. Start on IV fluids. We will place Khan catheter. I have discussed code status with daughter and and he has made it known that he wishes DNR status. We will follow through with that. We will administer O2 to maintain adequate saturations. Further recommendations pending. Dictated by... Unit #: [id number] #: [id number] Patient: PATRIC HERNANDEZ Yosef Beasley/juan TD: 03/02/2017 23:35 JOB #: [id number] CONSULTATION REPORT Page 1 of 1 X Krystian Catherine MD CONSULTATION REPORT
--- NOTE | ~2017-03-01 | EKG ---
PATIENT: PATRIC HERNANDEZ UNIT #: [id number] Ventricular Rate: 101 BPM Atrial Rate: 101 BPM P-R Interval: 198 ms QRS Duration: 112 ms Q-T Interval: 388 ms QTC Calculation(Bezet): 503 ms P [place]: 80 degrees Calculated R [place]: -8 degrees Calculated T [place]: 95 degrees Diagnosis Line: Sinus tachycardia Diagnosis Line: Abnormal QRS-T angle, consider primary T wave Diagnosis Line: abnormality Diagnosis Line: Abnormal ECG Diagnosis Line: When compared with ECG of 14-FEB-2017 07:08, Diagnosis Line: Nonspecific T wave abnormality no longer evident Diagnosis Line: in Inferior leads Diagnosis Line: QT has lengthened Diagnosis Line: Poor data quality Diagnosis Line: Confirmed by JUAN DAVID PENNY MD ([id number]) on 03/06/2017 Diagnosis Line: 7:33:09 AM INTERPRETING MD: ZOHAIB MACIAS
--- NOTE | ~2017-03-01 | HP ---
Unit #: [id number] #: [id number] Patient: PATRIC HERNANDEZ [id number] [address] [place], [place] [address] [id number] I MR#: [id number] NAME: PATRIC HERNANDEZ. ROOM: 62302 Age: 86 Sex: M Admission Date: 03/01/2017 : 1930 Attending Physician: Kiara Serrano M.D. Primary Care Physician: Louis Esparza M.D. HISTORY AND PHYSICAL CHIEF COMPLAINT Shortness of breath. HISTORY OF PRESENT ILLNESS The patient is an 86-year-old male with a history of atrial fibrillation, diabetes mellitus, hypertension, brought to the emergency room from the [facility]. The patient was found to be in respiratory distress with the sats down into the 60s at the residential. The patient was put on 5 L of oxygen and then on BiPAP for awhile at the residential. When the patient was brought to the emergency room patient was put on the Venturi mask 50% Venturi mask as the sats were in the 91%. The patient is a poor historian and the history is obtained by speaking to the ER physician and the RN at the bedside. The patient was recently discharged from the hospital on February 19 with dementia with the behavioral disturbance. The patient is having congestion associated with sinusitis, as per the patient's at the bedside, and denies any fever, denies any chills. No further history is available. PAST MEDICAL HISTORY 1. Diabetes mellitus. 2. Atrial fibrillation. 3. BPH. 4. History of a B12 deficiency. 5. GERD. 6. DJD. 7. Hypertension. 8. Bladder stone removal. PAST SURGICAL HISTORY 1. Bilateral total knee replacement. 2. Cataract extraction. 3. Excision of basal and squamous cell carcinoma. 4. Bilateral shoulder surgeries. SOCIAL HISTORY The patient stopped smoking 50 years ago, drinks an occasional beer. FAMILY HISTORY Reviewed and none. ALLERGIES No known drug allergies. Unit #: [id number] #: [id number] Patient: PATRIC HERNANDEZ HOME MEDICATIONS Patient is on Tylenol, Fleet Enema, Glucophage, haloperidol, Cardizem, hydralazine and Mobic. REVIEW OF SYMPTOMS Unable to obtain because the patient is more sleepy and on the Venturi mask and unable to follow the commands. CODE STATUS DNR, from the records. PHYSICAL EXAMINATION GENERAL APPEARANCE: On examination the patient is lying on a bed, not in acute distress. VITAL SIGNS: Temperature is afebrile, pulse 103, respiratory rate 20, blood pressure 162/92, sating 91% at 50% Venturi mask. HEENT: Head atraumatic and normocephalic. Pupils equal, round and reacting to light and accommodation. Dry mucous membrane. NECK: Supple. LUNGS: Decreased air entry at the bases. Positive for rhonchi. HEART: Regular rate and rhythm. Positive for murmur. ABDOMEN: Soft, positive bowel sounds. EXTREMITIES: No cyanosis. No clubbing. NEUROLOGIC: Patient is more sleepy and on the Venturi mask and does not follow any commands. Moves the extremities intermittently. DIAGNOSTIC STUDIES LABORATORY DATA: ABG pH of 7.39, pCO2 of 40, pO2 65, bicarb 25. WBC 11.4, hemoglobin 13, hematocrit 39.9, platelet is 355, neutrophils 88%. Troponin less than 0.05. INR is 1.1. Lactic acid is 1.6. Sodium 140, potassium 4, chloride 100, bicarb 25, glucose 145, BUN 21, creatinine 1.2, AST 27, ALT 33, alkaline phosphatase 55 and BNP is 154. ASSESSMENT 1. Acute respiratory failure, on 50% Venturi mask. 2. Pneumonia at the right lower lobe. 3. History of atrial fibrillation. PLAN 1. Plan to admit the patient to the inpatient with the telemetry. 2. Continue with the IV antibiotics with the Maxipime and Zithromax. 3. Will have the Pulmonary consult. 4. Check the sputum cultures. 5. Repeat the labs again in the morning. 6. Further recommendations will follow as more lab results are available. Dictated by Yosef Platt TD: 03/01/2017 18:37 JOB #: [id number] Unit #: [id number] #: [id number] Patient: PATRIC HERNANDEZ HISTORY AND PHYSICAL Page 1 of 1 X KIARA SERRANO MD X HISTORY AND PHYSICAL
--- NOTE | ~2017-03-01 | DS ---
Unit #: [id number] #: [id number] Patient: PATRIC HERNANDEZ [id number] [address] [address] [id number] MR#: [id number] NAME: PATRIC HERNANDEZ. ROOM: 564 Age: 86 Sex: M Admission Date: 03/01/2017 : 1930 Discharge Date: 03/02/2017 Attending Physician: Brii Serrano M.D. Primary Care Physician: Louis Esparza M.D. DISCHARGE SUMMARY DATE/TIME OF March 02, 2017 at 1401 hours. HISTORY OF PRESENT ILLNESS/HOSPITAL COURSE The patient is an 86-year-old male admitted secondary to dyspnea, multifactorial. Please refer to H and P for complete details. He was admitted, subsequently placed on telemetry floor. On the morning of 03/02/2017 consultation was placed to pulmonary service. Dr. Catherine saw and evaluated the patient. After discussion in regard to the patient's overall long-term prognosis, as well as long-term goals of care, decision was made at that point in time for the patient to be made DNR status. All parties were in agreement, including the patient's who was present at bedside. At approximately 1300 hours on the afternoon of 03/02/2017 the patient's condition started to deteriorate. Later on within the hour the patient's heart rate began to decrease, and at 1401 hours the patient ultimately . was present at bedside. FINAL DISCHARGE DIAGNOSES 1. 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 2. Right lower lobe pneumonia. 3. Prior history of atrial fibrillation. 4. Endstage dementia. 5. Long-term senior living resident. 6. Diabetes. 7. Gastroesophageal reflux disease. 8. Hypertension. 9. Prior history of skin carcinoma. Dictated by... Ash Sidhu M.D. GURU/keith TD: 03/08/2017 12:38 JOB #: [id number] Unit #: [id number] #: [id number] Patient: PATRIC HERNANDEZ DISCHARGE SUMMARY Page 1 of 1 X Ash Sidhu MD DISCHARGE SUMMARY
--- NOTE | ~2017-03-01 | CR72 ---
[facility] A Service of [facility] RADIOLOGY TEXT RESULTS PATIENT: PATRIC HERNANDEZ LOCATION: [facility] 564-01 : 32 UNIT #: [id number] AGE: [address]: KIARA SERRANO MD SEX: M ORDER DR: [id number] [facility] [address] [place], [place] [address] [id number] I MR#: [id number] Acc #: [id number] NAME: PATRIC HERNANDEZ. : 1930 SEX: M STUDY DATE/TIME: 03/01/2017 13:46 UNIT: [facility] ROOM: [facility] STUDY DESCRIPTION: CR Chest Single View Portable Attending Physician: Kiara Serrano M.D. Ordering Physician: Lázaro Ballesteros D.O. Primary Care Physician: Louis Esparza M.D. MEDICAL IMAGING REPORT This report is preliminary unless electronic signature is present EXAM Single view of the chest dated 03/01/2017. COMPARISON Single view chest dated 02/13/2017. HISTORY Shortness of air, dementia today. History of skin cancer. Atrial fibrillation and asthma. FINDINGS Single view of the chest was obtained. Patchy alveolar opacity is noted in the right lung base, worse when compared to the prior study from earlier this month. It could be related to pneumonia in the appropriate clinical setting. Patient positioning limits evaluation. Left lung is relatively well-aerated. Heart is of stable size. 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 Dictated by... Sandra Koch M.D. THIS IS AN ELECTRONICALLY VERIFIED REPORT Sandra Koch M.D. at 03/04/2017 9:41 AM CPR/jt TD: 03/01/2017 19:25 JOB #: [id number] MEDICAL IMAGING REPORT Page 1 of 1 COPY
[~2017-03-01 12:56] MED LIST changes: +ACCU-CHEK1 EAC2; +CARTIA XT240 MG PO; +CELEXA20 MG PO; +METFORMIN PO
[2017-03-01] MEDS ORDERED: METFORMIN PO (13:32)
[2017-03-01] MEDS ORDERED: HALDOL PO (13:32)
[2017-03-01] MEDS ORDERED: CARDIZEM CD240 M2 PO (13:33)
[2017-03-01] MEDS ORDERED: HYDRALAZINE HCL50 MG PO (13:33)
[2017-03-01] MEDS ORDERED: MOBIC PO (13:34)
[2017-03-01] MEDS ORDERED: ACETAMINOPHEN PO (13:34)
[2017-03-01] MEDS ORDERED: FLEET ENEMA133 M1 PR (13:35)
[2017-03-01 13:45] LABS: ARTERIAL BLD GAS O2 SATURATION 90.4 % (90.0-100.0); ARTERIAL BLOOD GAS CARBOXY HB 0.8 %sat (0.0-9.0); ARTERIAL BLOOD GAS MET HB 0.8 %sat (0.0-2.0); ARTERIAL BLOOD GAS PCO2 40.9 mmHg (35.0-45.0); ARTERIAL BLOOD GAS pH 7.394 (7.350-7.450)
[2017-03-01 13:47] LABS: ARTERIAL BLOOD GAS ALLEN TEST NORMAL; ARTERIAL BLOOD GAS ART SITE LEFT RADIAL; ARTERIAL BLOOD GAS PO2 65.3 mmHg (80.0-100); ARTERIAL DRAW? YES
[2017-03-01 13:48] LABS: ARTERIAL BLOOD GAS DELIVERY VENTURI MASK
[2017-03-01 14:23] LABS: BASOPHIL% 0.3 % (0-2.5); DIFF IND NO; HEMATOCRIT 39.9 % (38.0-50.0); LYMPHOCYTE# 0.4 X10e3 (1.0-3.5); LYMPHOCYTE% 3.6 % (17.0-45.0); MEAN CELL VOLUME 93.3 FL (83-96); MEAN CORPUSCULAR HEMOGLOBIN 30.5 PG (28-34); MEAN CORPUSCULAR HGB CONC 32.7 g/dL (30-36); MEAN PLATELET VOLUME 8.2 FL (6.5-11.5); MONOCYTE# 0.9 X10e3 (0-1.0); MONOCYTE% 8.1 % (3.0-12.0); PLATELET COUNT 355 X10e3 (140-420); RED BLOOD COUNT 4.28 X10e (3.90-5.60); RED CELL DISTRIBUTION WIDTH 14.1 % (11.0-15.5); WHITE BLOOD COUNT 11.4 X10e3 (4.0-10.5)
[2017-03-01 14:33] LABS: POC - CKMB 2.6 ng/mL (0.0-7.9); POC - TROPONIN <0.05 ng/mL (<=0.05)
[2017-03-01 14:36] LABS: INR 1.1; PARTIAL THROMBOPLASTIN TIME 29.8 SECONDS (23.5-31.3)
[2017-03-01 14:54] LABS: ALBUMIN SERUM 3.5 g/dL (3.5-5.0); BILIRUBIN, DIRECT 0.4 mg/dL (0.0-0.2); BILIRUBIN,INDIRECT 0.6 mg/dL (0.0-0.9); BUN/CREATININE RATIO 17.5; CALCIUM SERUM 9.1 mg/dL (8.4-10.2); CREATININE SERUM 1.2 mg/dL (0.6-1.4); GLOM FILT RATE Estimated 55.2 mL/min (>60); PROTEIN TOTAL SERUM 7.1 g/dL (6.0-8.3)
[2017-03-01 16:27] LABS: POC - CKMB 2.1 ng/mL (0.0-7.9); POC - TROPONIN <0.05 ng/mL (<=0.05)
[2017-03-02 07:34] LABS: BASOPHIL% 0.2 % (0-2.5); HEMATOCRIT 35.9 % (38.0-50.0); HEMOGLOBIN 11.9 gm/dL (13.0-16.0); LYMPHOCYTE# 0.7 X10e3 (1.0-3.5); MEAN CELL VOLUME 92.8 FL (83-96); MEAN CORPUSCULAR HEMOGLOBIN 30.7 PG (28-34); MEAN CORPUSCULAR HGB CONC 33.1 g/dL (30-36); MEAN PLATELET VOLUME 8.1 FL (6.5-11.5); MONOCYTE# 1.1 X10e3 (0-1.0); MONOCYTE% 7.5 % (3.0-12.0); NEUTROPHIL# 12.8 X10e3 (1.5-7.1); NEUTROPHIL% 87.3 % (40-75); PLATELET COUNT 308 X10e3 (140-420); RED BLOOD COUNT 3.87 X10e (3.90-5.60); WHITE BLOOD COUNT 14.6 X10e3 (4.0-10.5)
[2017-03-02 07:37] LABS: DIFF IND NO
[2017-03-02 08:19] LABS: BUN/CREATININE RATIO 22.72; CALCIUM SERUM 8.3 mg/dL (8.4-10.2); CREATININE SERUM 1.1 mg/dL (0.6-1.4); GLOM FILT RATE Estimated 61.3 mL/min (>60); POTASSIUM 3.7 mmol/L (3.5-5.1)
== END 2017-03-02 17:12 | disposition expired | DRG 177 ==
LOC: CED 12:56 → CEDOF 16:56 → C5C 19:05
PROVIDERS: Emergency Medicine; Internal Medicine
PROC: 05HB33Z Insertion of Infusion Device into Right Basilic Vein, Percutaneous Approach (ICD-10-PCS; principal; 2017-03-02)
DX: J69.0 Pneumonitis due to inhalation of food and vomit (principal); J96.01 Acute respiratory failure with hypoxia; J96.02 Acute respiratory failure with hypercapnia; F03.91 Unspecified dementia, unspecified severity, with behavioral disturbance; E11.9 Type 2 diabetes mellitus without complications; I10 Essential (primary) hypertension; B96.3 Hemophilus influenzae [H. influenzae] as the cause of diseases classified elsewhere; J32.9 Chronic sinusitis, unspecified; I48.91 Unspecified atrial fibrillation; Z79.84 Long term (current) use of oral hypoglycemic drugs; N40.0 Benign prostatic hyperplasia without lower urinary tract symptoms; K21.9 Gastro-esophageal reflux disease without esophagitis; Z87.891 Personal history of nicotine dependence; Z96.653 Presence of artificial knee joint, bilateral; Z98.49 Cataract extraction status, unspecified eye; Z16.24 Resistance to multiple antibiotics
CPT/HCPCS: 36415; 36600; 71010; 80048; 80076; 82553; 82803; 83605; 83880; 84484; 85025; 85610; 85730; 87040; 87070; 87077; 87205; 93005; 96365; 99291; J0456; J0692; J1650; J2543; J3260; J3370